=== PATIENT | female | born 2000 ===

== ENCOUNTER 2019-07-10 16:42 | Emergency (ER) | payer OTHER ==
--- OUTSIDE RECORDS SUMMARY | 2019-07-10 16:51 | XMS REPORT | Continuity of Care Document ---
:2000 External Reference #:[id number] Demographics Address [address] [place] [address] Home Phone [phone] Preferred Language en Marital Status Declined to Specify/Unknown Baptism Affiliation Unknown Race / Additional Race(s) Black / White Ethnic Group Declined to Specify/Unknown Author Name Joycelyn Campoverde MD Address [address] [place] [address] Care Team Providers Name Role Phone Oseas Jackson - Ophthalmology Care Team Information Relay Motorman [phone] HCP given Care Team Information Relay Motorman Unavailable Problems Active Problems Provider Date Attention deficit hyperactivity disorder Trini Howard PDayton Onset: 2012 Mild recurrent major depression Trini Howard PDayton Onset: 09/23/2012 Social History Type Date Description Comments Sex Unknown Tobacco Use Start: Unknown Never Smoked Cigarettes Smoking Status Reviewed: 05/15/19 Never Smoked Cigarettes ETOH Use Denies alcohol use Tobacco Use Start: Unknown Patient has never smoked Enjoy Exercising Negative For Enjoys 12/2013 does not exercising exercsie regulary. Sun Exposure Uses sunscreen Seat Belt/Car Seat always uses seat belt Guns in Home No Smoke Alarms Yes smoke alarm Allergies, Adverse Reactions, Alerts Active Allergies Reaction Severity Comments Date Bactrim 07/12/2012 Medications Active Medications SIG Qnty Indications Ordering Date Provider Medroxyprogesterone intramuscular x 1 1ml Z30.09 Joycelyn Campoverde 05/15/2019 Acetate every 13 weeks MD Elli 150mg/ml Suspension Fluoxetine HCL take 1 capsule Unknown 08/24/2018 20mg Capsules every morning Hydroxyzine Pamoate take one capsule by Unknown 08/24/2018 25mg mouth four times a Capsules day as needed for anxiety will make you drowsy Immunizations CPT Code Status Date Vaccine Lot # [id number] Given 12/20/2010 Flu, Split Virus 3Yrs 37849 Given 11/27/2010 Adacel or Boostrix, TDaP 00479 Given 05/17/2010 Gardasil HPV vaccine 62109 Given 01/11/2010 Flu, Split Virus 3Yrs 20175 Given 01/11/2010 Gardasil HPV vaccine 48148 Given 11/11/2009 Menactra Menningitis Vaccine 98639 Given 11/10/2009 Gardasil HPV vaccine 17452 Given 01/23/2004 Poliomyelitis Immunization 08493 Given 01/23/2004 DTP Immunization 42908 Given 01/22/2001 MMR Virus Immunization 23233 Given 01/22/2001 Prevnar (Pneumococcal Conjugate) 83487 Given 10/12/2000 Prevnar (Pneumococcal Conjugate) 35883 Given 05/13/2000 Prevnar (Pneumococcal Conjugate) 52569 Given 03/12/2000 Varicella (Chicken Pox) Immunization 83918 Given 12/19/1999 Hib 4 Dose, Acthib 73863 Given 12/19/1999 MMR Virus Immunization 41908 Given 12/19/1999 Poliomyelitis Immunization 00956 Given 12/19/1999 Varicella (Chicken Pox) Immunization 42440 Given 12/12/1999 DTP Immunization 43512 Given 06/12/1999 Hep B Immunization, Ped/Adolescent To 11 Yrs 23208 Given 06/12/1999 DTP Immunization 81406 Given 06/12/1999 Hib 4 Dose, Acthib 86542 Given 02/18/1999 Hib 4 Dose, Acthib 45860 Given 02/13/1999 Poliomyelitis Immunization 80088 Given 02/10/1999 DTP Immunization 43361 Given 1998 DTP Immunization 15790 Given 1998 Hib 4 Dose, Acthib 74033 Given 1998 Hep B Immunization, Ped/Adolescent To 11 Yrs 57774 Given 1998 Poliomyelitis Immunization 91303 Given 1998 Hep B Immunization, Ped/Adolescent To 11 Yrs Vital Signs Date Vital Result Comment 05/15/2019 3:56pm BP Systolic 112 mmHg BP Diastolic 58 mmHg Height 62.5 inches 5'2.50" Weight 165.00 lb BMI (Body Mass Index) 29.7 kg/m2 04/10/2019 10:40am BP Systolic 112 mmHg BP Diastolic 74 mmHg Height 62.50 inches 5'2.50" Weight 158.00 lb BMI (Body Mass Index) 28.4 kg/m2 Results Description No Information Available Procedures Description No Information Available Medical Devices Description No Information Available Encounters Type Date Location Provider Dx Diagnosis Office Visit 05/15/2019 Main Office Joycelyn Campoverde, Z30.09 Encounter for oth 4:00p general coun and advice on contraception D68.51 Activated protein C resistance Z68.29 Body mass index (BMI) 29.0-29.9, adult Office Visit 04/10/2019 10:30a Main Office Joycelyn Campoverde, F33.0 Major depressive MD disorder, recurrent, mild F90.9 Attention-deficit hyperactivity disorder, unspecified type 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 Z68.28 Body mass index (BMI) 28.0-28.9, adult Assessments Date Code Description Provider 05/15/2019 Z30.09 Encounter for other general counseling and Joycelyn Campoverde MD advice on contraception 05/15/2019 D68.51 Activated protein C resistance Joycelyn Campoverde MD 05/15/2019 Z68.29 Body mass index (BMI) 29.0-29.9, adult Joycelyn Campoverde MD 04/10/2019 F33.0 Major depressive disorder, recurrent, mild Joycelyn Campoverde MD 04/10/2019 F90.9 Attention-deficit hyperactivity disorder, Joycelyn Campoverde MD unspecified type 04/10/2019 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 Will consider if wants IUDNeeds pap at age 19Follow up:f/u with nurse visit after you sisal picker prescription. for depo provera and with me one month after the injection is given. You should continue to use condoms to prevent sexually transmitted infections.D68.51 Activated protein C icocbmwibtL54.29 Body mass index (BMI) 29.0-29.9, adult Functional Status Description No Information Available Mental Status Description No Information Available Referrals Description No Information Available
--- OUTSIDE RECORDS SUMMARY | 2019-07-10 16:51 | XMS REPORT | Continuity of Care Document ---
:1998 External Reference #:[id number] Demographics Address [address] [place] [address] Home Phone [phone] Preferred Language en Marital Status Not or Caodaism Affiliation Unknown Race / Additional Race(s) Black / White Ethnic Group Not or Author Name Joycelyn Campoverde MD (transmitted by agent of provider Dora Montenegro) Address [address] [place] [address] Care Team Providers Name Role Phone Oseas Jackson - Ophthalmology Care Team Information Social Work Supervisor [phone] HCP given Care Team Information Social Work Supervisor Unavailable Problems Active Problems Provider Date Attention deficit hyperactivity disorder Lisa Ann Onset: 2012 Mild recurrent major depression Lisa Ann Onset: 09/23/2012 Social History Type Date Description [...] needed for anxiety will make you drowsy Medications Administered in Office Medication SIG Qnty Indications Ordering Provider Date Depo Provera Injection Joycelyn Campoverde MD 06/27/2019 Injection Immunizations CPT Code Status Date Vaccine Lot # [id number] Given 12/20/2010 Flu, Split Virus 3Yrs 54609 Given 11/27/2010 Adacel or Boostrix, TDaP 54518 Given 05/17/2010 Gardasil HPV vaccine 56862 Given 01/11/2010 Flu, Split Virus 3Yrs 70192 Given 01/11/2010 Gardasil HPV vaccine 52604 Given 11/11/2009 Menactra Menningitis Vaccine 31947 Given 11/10/2009 Gardasil HPV vaccine 46852 Given 01/23/2004 Poliomyelitis Immunization 40348 Given 01/23/2004 DTP Immunization 55083 Given 01/22/2001 MMR Virus Immunization 52877 Given 01/22/2001 Prevnar (Pneumococcal Conjugate) 65701 Given 10/12/2000 Prevnar (Pneumococcal Conjugate) 23915 Given 05/13/2000 Prevnar (Pneumococcal Conjugate) 75712 Given 03/12/2000 Varicella (Chicken Pox) Immunization 50133 Given 12/19/1999 Hib 4 Dose, Acthib 84643 Given 12/19/1999 MMR Virus Immunization 81642 Given 12/19/1999 Poliomyelitis Immunization 46197 Given 12/19/1999 Varicella (Chicken Pox) Immunization 95672 Given 12/12/1999 DTP Immunization 19570 Given 06/12/1999 Hep B Immunization, Ped/Adolescent To 11 Yrs 30664 Given 06/12/1999 DTP Immunization 37385 Given 06/12/1999 Hib 4 Dose, Acthib 82471 Given 02/18/1999 Hib 4 Dose, Acthib 27954 Given 02/13/1999 Poliomyelitis Immunization 16832 Given 02/10/1999 DTP Immunization 07153 Given 1998 DTP Immunization 01338 Given 1998 Hib 4 Dose, Acthib 61731 Given 1998 Hep B Immunization, Ped/Adolescent To 11 Yrs 78431 Given 1998 Poliomyelitis Immunization 11846 Given 1998 Hep B Immunization, Ped/Adolescent To 11 Yrs Vital Signs Date Vital Result Comment 06/27/2019 5:20pm BP Systolic 90 mmHg BP Diastolic 60 mmHg Weight 169.00 lb 05/15/2019 3:56pm BP Systolic 112 mmHg BP Diastolic 58 mmHg Height 62.5 inches 5'2.50" Weight 165.00 lb BMI (Body Mass Index) 29.7 kg/m2 Results Description No Information Available Procedures Description No Information Available Medical Devices Description No Information Available Encounters Type Date Location Provider Dx Diagnosis Office Visit 06/27/2019 Main Office Joycelyn Campoverde, Z30.09 Encounter for kathia 4:30p general coun and advice on contraception 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 Office Visit 05/15/2019 4:00p Main Office Joycelyn Campoverde Z30.09 Encounter for kathia Calloway MD general coun and advice on contraception D68.51 Activated protein C resistance Z68.29 Body mass index (BMI) 29.0-29.9, adult Office Visit 04/10/2019 10:30a Main Office Joycelyn Campoverde, F33.0 Major depressive MD disorder, recurrent, mild F90.9 Attention-deficit hyperactivity disorder, unspecified type 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 If you should experience sudden shortness of breath or chest pain or calf pain, go to the ED. The likelihood of a blood clot is very very low with this medication, but it is not zero.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Comments:factor V Leiden deficiency Functional Status Description No Information Available Mental Status Description No Information Available Referrals Description No Information Available
--- OUTSIDE RECORDS SUMMARY | 2019-07-10 16:51 | XMS REPORT | Continuity of Care Document ---
:1998 External Reference #:[id number] Demographics Address [address] [place] [address] Home Phone [phone] Preferred Language en Marital Status Not or Jehovah'S Witness Affiliation Unknown Race / Additional Race(s) Black / White Ethnic Group Not or Author Name Joycelyn Campoverde MD (transmitted by agent of provider Ashley Prieto) Address [address] [place] [address] Care Team Providers Name Role Phone Oseas Jackson - Ophthalmology Care Team Information Boxing And Pressing Supervisor HCP given Care Team Information Boxing And Pressing Supervisor Unavailable Problems Active Problems Provider Date Attention deficit hyperactivity disorder Lisa Ann Onset: 2012 Mild recurrent major depression Lisa Ann Onset: 09/23/2012 Social History Type Date Description Comments Sex Unknown Tobacco Use Start: Unknown Never Smoked Cigarettes Smoking Status Reviewed: 06/28/19 Never Smoked Cigarettes ETOH Use Denies alcohol [...] Provera Injection Joycelyn Campoverde MD 06/27/2019 Injection SC/Im Injections Joycelyn Campoverde MD 06/27/2019 Injection Immunizations CPT Code Status Date Vaccine Lot # [id number] Given 12/20/2010 Flu, Split Virus 3Yrs 78350 Given 11/27/2010 Adacel or Boostrix, TDaP 27251 Given 05/17/2010 Gardasil HPV vaccine 35239 Given 01/11/2010 Flu, Split Virus 3Yrs 65418 Given 01/11/2010 Gardasil HPV vaccine 25684 Given 11/11/2009 Menactra Menningitis Vaccine 65611 Given 11/10/2009 Gardasil HPV vaccine 03913 Given 01/23/2004 Poliomyelitis Immunization 24547 Given 01/23/2004 DTP Immunization 43058 Given 01/22/2001 MMR Virus Immunization 28553 Given 01/22/2001 Prevnar (Pneumococcal Conjugate) 19934 Given 10/12/2000 Prevnar (Pneumococcal Conjugate) 71545 Given 05/13/2000 Prevnar (Pneumococcal Conjugate) 65566 Given 03/12/2000 Varicella (Chicken Pox) Immunization 09898 Given 12/19/1999 Hib 4 Dose, Acthib 86929 Given 12/19/1999 MMR Virus Immunization 84980 Given 12/19/1999 Poliomyelitis Immunization 74144 Given 12/19/1999 Varicella (Chicken Pox) Immunization 83718 Given 12/12/1999 DTP Immunization 77153 Given 06/12/1999 Hep B Immunization, Ped/Adolescent To 11 Yrs 80904 Given 06/12/1999 DTP Immunization 76959 Given 06/12/1999 Hib 4 Dose, Acthib 77307 Given 02/18/1999 Hib 4 Dose, Acthib 47695 Given 02/13/1999 Poliomyelitis Immunization 66212 Given 02/10/1999 DTP Immunization 30181 Given 1998 DTP Immunization 47716 Given 1998 Hib 4 Dose, Acthib 32868 Given 1998 Hep B Immunization, Ped/Adolescent To 11 Yrs 44961 Given 1998 Poliomyelitis Immunization 78738 Given 1998 Hep B Immunization, Ped/Adolescent To 11 Yrs Vital Signs Date Vital Result Comment 06/27/2019 5:20pm BP Systolic 90 mmHg BP Diastolic 60 mmHg Weight 169.00 lb 05/15/2019 3:56pm BP Systolic 112 mmHg BP Diastolic 58 mmHg Height 62.5 inches 5'2.50" Weight 165.00 lb BMI (Body Mass Index) 29.7 kg/m2 Results Description No Information Available Procedures Date Code Description Status 06/27/2019 53722 SC/Im Injections Completed Medical Devices Description No Information Available Encounters Type Date Location Provider Dx Diagnosis Office Visit 06/27/2019 Main Office Joycelyn Campoverde MD D68.2 Hereditary 4:30p deficiency of other clotting factors Z30.013 Encounter for initial prescription of injectable contracep N92.6 Irregular menstruation, unspecified Z71.89 Other specified counseling Office Visit 05/15/2019 4:00p Main Office Joycelyn [...] adult Assessments Date Code Description Provider 06/27/2019 D68.2 Hereditary deficiency of other clotting Joycelyn Campoverde MD factors 06/27/2019 Z30.013 Encounter for initial prescription of Joycelyn Campoverde MD injectable contraceptive 06/27/2019 N92.6 Irregular menstruation, unspecified Joycelyn Campoverde MD 06/27/2019 Z71.89 Other specified counseling Joycelyn Campoverde MD 05/15/2019 Z30.09 Encounter for [...] 04/10/2019 D68.2 Hereditary deficiency of other clotting Joycelyn Campoverde MD factors 04/10/2019 Z68.28 Body mass index (BMI) 28.0-28.9, adult Joycelyn Campoverde MD Plan of Treatment Future Appointment(s):09/28/2019 3:15 pm - Nurse's Schedule at Main [id number] - Joycelyn Campoverde, MD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Comments:factor V Leiden deficiency Discussed small risk of thromboembolism which is much lower with depo than with estrogen based contraceptives, and the risk of unwanted . Patient verbalized understanding and acceptance of the risks. She requests the depo shot.Z30.013 Encounter for initial prescription of injectable aolbrewwvvfjsC64.6 Irregular menstruation, xydutmeprvaH74.89 Other specified counseling Functional Status Description No Information Available Mental Status Description No Information Available Referrals Description No Information Available
--- OUTSIDE RECORDS SUMMARY | 2019-07-10 16:51 | XMS REPORT | Continuity of Care Document ---
:1998 External Reference #:[id number] Demographics Address [address] [place] [address] Home Phone [phone] Preferred Language en Marital Status Not or Religion Affiliation Unknown Race / Additional Race(s) Black / White Ethnic Group Not or Author Name Joycelyn Campoverde MD (transmitted by agent of provider Ashley Prieto) Address [address] [place] [address] Care Team Providers Name Role Phone Oseas Jackson - Ophthalmology Care Team Information Photogrammetric Tech [phone] HCP given Care Team Information Photogrammetric Tech Unavailable Problems Active Problems Provider Date Attention deficit hyperactivity disorder Lisa Ann Onset: 2012 Mild recurrent major depression Trini [...] CPT Code Status Date Vaccine Lot # [id number] Given 12/20/2010 Flu, Split Virus 3Yrs 63109 Given 11/27/2010 Adacel or Boostrix, TDaP 95967 Given 05/17/2010 Gardasil HPV vaccine 71472 Given 01/11/2010 Flu, Split Virus 3Yrs 14245 Given 01/11/2010 Gardasil HPV vaccine 48787 Given 11/11/2009 Menactra Menningitis Vaccine 96429 Given 11/10/2009 Gardasil HPV vaccine 77833 Given 01/23/2004 Poliomyelitis Immunization 06715 Given 01/23/2004 DTP Immunization 76933 Given 01/22/2001 MMR Virus Immunization 66422 Given 01/22/2001 Prevnar (Pneumococcal Conjugate) 58998 Given 10/12/2000 Prevnar (Pneumococcal Conjugate) 04994 Given 05/13/2000 Prevnar (Pneumococcal Conjugate) 68570 Given 03/12/2000 Varicella (Chicken Pox) Immunization 46081 Given 12/19/1999 Hib 4 Dose, Acthib 02315 Given 12/19/1999 MMR Virus Immunization 83760 Given 12/19/1999 Poliomyelitis Immunization 48425 Given 12/19/1999 Varicella (Chicken Pox) Immunization 58819 Given 12/12/1999 DTP Immunization 20925 Given 06/12/1999 Hep B Immunization, Ped/Adolescent To 11 Yrs 33683 Given 06/12/1999 DTP Immunization 02890 Given 06/12/1999 Hib 4 Dose, Acthib 06558 Given 02/18/1999 Hib 4 Dose, Acthib 43466 Given 02/13/1999 Poliomyelitis Immunization 08744 Given 02/10/1999 DTP Immunization 23245 Given 1998 DTP Immunization 55046 Given 1998 Hib 4 Dose, Acthib 56346 Given 1998 Hep B Immunization, Ped/Adolescent To 11 Yrs 95434 Given 1998 Poliomyelitis Immunization 83795 Given 1998 Hep B Immunization, Ped/Adolescent To [...] 21Follow up:f/u with nurse visit after you parts picker prescription. for depo provera and with me one month after the injection is given. You should continue to use condoms to prevent sexually transmitted infections.D68.51 Activated protein C [id number] Body mass index (BMI) 29.0-29.9, adult Functional Status Description No Information Available Mental Status Description No Information Available Referrals Description No Information Available
--- OUTSIDE RECORDS SUMMARY | 2019-07-10 16:51 | XMS REPORT | Continuity of Care Document ---
:1998 External Reference #:[id number] Demographics Address [address] [place] [address] Home Phone [phone] Preferred Language en Marital Status Not or Zoroastrian Affiliation Unknown Race / Additional Race(s) Black / White Ethnic Group Not or Author Name Joycelyn Campoverde MD (transmitted by agent of provider Malia Silva) Address [address] [place] [address] Care Team Providers Name Role Phone Oseas Jackson - Ophthalmology Care Team Information Subwarehouse Supervisor HCP given Care Team Information Subwarehouse Supervisor Unavailable Problems Active Problems Provider Date [...] CPT Code Status Date Vaccine Lot # [id number] Given 12/20/2010 Flu, Split Virus 3Yrs 96869 Given 11/27/2010 Adacel or Boostrix, TDaP 43573 Given 05/17/2010 Gardasil HPV vaccine 65811 Given 01/11/2010 Flu, Split Virus 3Yrs 51789 Given 01/11/2010 Gardasil HPV vaccine 91088 Given 11/11/2009 Menactra Menningitis Vaccine 61150 Given 11/10/2009 Gardasil HPV vaccine 77021 Given 01/23/2004 Poliomyelitis Immunization 19948 Given 01/23/2004 DTP Immunization 70255 Given 01/22/2001 MMR Virus Immunization 85724 Given 01/22/2001 Prevnar (Pneumococcal Conjugate) 42482 Given 10/12/2000 Prevnar (Pneumococcal Conjugate) 31177 Given 05/13/2000 Prevnar (Pneumococcal Conjugate) 72178 Given 03/12/2000 Varicella (Chicken Pox) Immunization 60212 Given 12/19/1999 Hib 4 Dose, Acthib 20723 Given 12/19/1999 MMR Virus Immunization 01519 Given 12/19/1999 Poliomyelitis Immunization 61382 Given 12/19/1999 Varicella (Chicken Pox) Immunization 30661 Given 12/12/1999 DTP Immunization 85579 Given 06/12/1999 Hep B Immunization, Ped/Adolescent To 11 Yrs 42969 Given 06/12/1999 DTP Immunization 99816 Given 06/12/1999 Hib 4 Dose, Acthib 14404 Given 02/18/1999 Hib 4 Dose, Acthib 05733 Given 02/13/1999 Poliomyelitis Immunization 37241 Given 02/10/1999 DTP Immunization 20532 Given 1998 DTP Immunization 02760 Given 1998 Hib 4 Dose, Acthib 94207 Given 1998 Hep B Immunization, Ped/Adolescent To 11 Yrs 52963 Given 1998 Poliomyelitis Immunization 89559 Given 1998 Hep B Immunization, Ped/Adolescent To [...] Joycelyn Campoverde MD Plan of Treatment Future Appointment(s):06/05/2019 3:45 pm - Joycelyn Campoverde MD at Main [id number] - Joycelyn Campoverde MDZ30.09 Encounter for other general counseling and advice on contraceptionNew Medication:Medroxyprogesterone Acetate 150 mg/ml - intramuscular x 1 every 13 weeksComments:unable to use oral contraceptive pills as is heterozygous for Factor V Leiden and risk of thromboembolism is elevated. Will consider if wants IUDNeeds pap at age 19Follow up:f/u with nurse visit after you scrap picker prescription. for depo provera and with me one month after the injection is given. You should continue to use condoms to prevent sexually transmitted infections.D68.51 Activated protein C avpjowsahzO05.29 Body mass index (BMI) 29.0-29.9, adult Functional Status Description No Information Available Mental Status Description No Information Available Referrals Description No Information Available
[2019-07-10 17:25] VITALS: BP 127/73
--- NOTE | 2019-07-10 17:31 | UC ---
Knee Pain HPI - HPI Summary HPI Summary: 18-year-old female comes in with a chief complaint of left knee pain. Been going on for about a month. No known specific trauma. Patient reports occasional clicking and locking. Activity makes the pain worse. Flexing and extending the knee increases the pain underneath the kneecap. Has not taken any [id number] pain relievers or anti-inflammatories. - History of Current Complaint Chief Complaint: UCLowerExtremity Stated Complaint: KNEE PAIN Time Seen by Provider: 07/10/19 17:06 Hx Last Menstrual Period: 06/16/19 Pain Intensity: 4 - Allergies/Home Medications Allergies/Adverse Reactions: Allergies Allergy/AdvReac Type Severity Reaction Status Date / Time sulfamethoxazole AdvReac Diarrhea Verified 07/10/19 17:03 [From Bactrim] trimethoprim [From Bactrim] AdvReac Diarrhea Verified 07/10/19 17:03 Home Medications: Home Medications FLUoxetine CAP* [PROzac CAP*] 20 mg PO DAILY 07/10/19 [History Confirmed ] hydrOXYzine HCL TAB* [Atarax 10 MG TAB*] 10 mg PO QID PRN 07/10/19 [History Confirmed 07/10/19] medroxyPROGESTERone ACETATE* [DEPO-Provera] 150 mg IM ONCE 07/10/19 [History Confirmed 07/10/19] PMH/Surg Hx/FS Hx/Imm Hx Previously Healthy: Yes - Surgical History Surgical History: Yes Surgery Procedure, Year, and Place: 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 - Family History Known Family History: Positive: Non-Contributory - Social History Alcohol Use: Occasionally Substance Use Type: None Smoking Status (MU): Never Smoked Tobacco Review of Systems All Other Systems Reviewed And Are Negative: Yes Constitutional: Positive: Negative Skin: Positive: Negative Eyes: Positive: Negative ENT: Positive: Negative Respiratory: Positive: Negative Cardiovascular: Positive: Negative Gastrointestinal: Positive: Negative Motor: Positive: Negative Neurovascular: Positive: Negative Musculoskeletal: Positive: Other: - SEE HPI Neurological/Mental Status: Positive: Negative Psychological: Positive: Negative Is Patient Immunocompromised?: No Physical Exam Triage Information Reviewed: Yes Appearance: Well-Appearing, No Pain Distress, Well-Nourished Vital Signs: Initial Vital Signs Temp 97.7 F 07/10/19 17:21 Pulse 86 07/10/19 17:21 Resp 16 03/30/20 17:21 BP 127/73 07/10/19 17:21 Pulse Ox 100 07/10/19 17:21 Vital Signs Reviewed: Yes Eye Exam: Normal Eyes: Positive: Conjunctiva Clear Neck: Positive: Supple Respiratory: Positive: No respiratory distress Musculoskeletal: Positive: Other: - The patella is nontender with movement however there is mild patellar crepitus with flexion and extension. Mild tenderness to palpation in the medial anterior aspect of the knee. Posterior knee is nontender to palpation as is the lateral knee. Patient reports pain with Ute's bilaterally worse medially. Knee is stable to exam. No effusion appreciated. Neurological: Positive: Alert Psychological: Positive: Age Appropriate Behavior Skin Exam: Normal Knee Pain Course/Dx - Course Course Of Treatment: I discussed the x-rays with the patient. I do not see any fracture or effusion on the x-ray. Final radiologist reading is pending. With the patient reporting locking and clicking or meniscus could be the cause however patellofemoral syndrome is more likely. We discussed exercises and icing. She' s got a use an Wu wrap or neoprene brace to see if that's helpful and then follow up with sports medicine. Because she only has one kidney she's not completely taking any nonsteroidal anti-inflammatories. - Differential Dx/Diagnosis Provider Diagnosis: Left knee pain Discharge ED - Sign-Out/Discharge Documenting (check all that apply): Patient Departure All imaging exams completed and their final reports reviewed: Yes - Discharge Plan Condition: Stable Disposition: HOME Patient Education Materials: Knee Pain (ED), Patellofemoral Pain Syndrome (ED) Referrals: [facility] [place] [facility] [Outside] [facility] [Provider Group] Additional Instructions: FOLLOW UP WITH SPORTS MEDICINE. GET REEVALUATED IF NOT IMPROVED OR WORSE OR ANY QUESTIONS OR CONCERNS. - Billing Disposition and Condition Condition: STABLE Disposition: Home
--- NOTE | 2019-07-10 18:31 | UC ---
Course/Dx - Diagnoses Provider Diagnoses: Left knee pain Discharge ED - Sign-Out/Discharge Documenting (check all that apply): Patient Departure All imaging exams completed and their final reports reviewed: No - Discharge Plan Condition: Stable Disposition: HOME Patient Education Materials: Patellofemoral Pain Syndrome (ED), Knee Pain (ED) Referrals: [facility] [Provider Group] [facility] [place] [facility] [Outside] Additional Instructions: FOLLOW UP WITH SPORTS MEDICINE. GET REEVALUATED IF NOT IMPROVED OR WORSE OR ANY QUESTIONS OR CONCERNS. - Billing Disposition and Condition Condition: STABLE Disposition: Home
--- NOTE | 2019-07-11 08:13 | UC ---
- Progress Note Progress Note: RADIOLOGY REPORT REVIEWED. NO ACUTE OSSEOUS INJURY. NO CHANGE IN MGMT. Course/Dx - Diagnoses Provider Diagnoses: Left knee pain Discharge ED - Sign-Out/Discharge Documenting (check all that apply): Post-Discharge Follow Up All imaging exams completed and their final reports reviewed: Yes - Discharge Plan Condition: Stable Disposition: HOME Patient Education Materials: Patellofemoral Pain Syndrome (ED), Knee Pain (ED) Referrals: [facility] [Provider Group] [facility] [place] [facility] [place]Outside] Additional Instructions: FOLLOW UP WITH SPORTS MEDICINE. GET REEVALUATED IF NOT IMPROVED OR WORSE OR ANY QUESTIONS OR CONCERNS. - Billing Disposition and Condition Condition: STABLE Disposition: Home
== END 2019-07-10 18:20 | disposition home or self-care (01) ==
LOC: UCEAST 16:42
DX: M25.562 Pain in left knee (principal); Z88.2 Allergy status to sulfonamides
CPT/HCPCS: 99202; G0463